=== PATIENT | male | born 1980 | race Caucasian/White ===

== ENCOUNTER 2016-11-12 13:43 | Emergency (ER) | payer MEDICARE, MEDICAID ==
[~2016-11-12] VITALS: Ht 172.7 cm; Wt 83.0 kg
[2016-11-12] MEDS ORDERED: ONDANSETRON 4MG ODT PO STA (15:58)
[2016-11-12 16:22] LABS: CHLORIDE 99 mEq/L (98-107); HEMATOCRIT. 45.9 % (42.0-52.0); HEMOGLOBIN. 16.3 g/dL (14.0-18.0); MEAN CORPUSCULAR HEMOGLOBIN 29.5 pg (28.0-32.0); MEAN CORPUSCULAR VOLUME 83.2 fL (80.0-94.0); MEAN PLATELET VOLUME 7.3 fl (7.4-10.4); PLATELET 242 x1000/uL (130-400); RED BLOOD CELL COUNT 5.51 mill/uL (4.7-6.1)
[2016-11-12 16:28] LABS: CARBON DIOXIDE 27 mEq/L (21-32)
[2016-11-12 16:58] LABS: CLARITY URINE CLOUDY (CLEAR); COLOR URINE DARK YELLOW (YELLOW); GLUCOSE URINE 1+ (NEGATIVE); KETONES URINE NEGATIVE (NEGATIVE); LEUKOCYTE ESTERASE URINE 1+ (NEGATIVE); NITRITE URINE NEGATIVE (NEGATIVE); OCCULT BLOOD URINE 2+ (NEGATIVE); PH URINE 6.5 (4.5-8.0); PROTEIN URINE 2+ (NEGATIVE); SPECIFIC GRAVITY URINE 1.021 (1.005-1.030)
[2016-11-12 17:28] LABS: ATYPICAL LYMPHOCYTES 1; PLATELET ESTIMATE NORMAL
[2016-11-12] MEDS ORDERED: LEVOFLOXACIN 750MG PREMIX 150 ML IV ONE (18:15)
[2016-11-12 20:45] VITALS: BP 119/72
== END 2016-11-12 21:24 | disposition home or self-care (01) ==
LOC: ER 14:33
DX: T83.511A Infection and inflammatory reaction due to indwelling urethral catheter, initial encounter (principal); N39.0 Urinary tract infection, site not specified; G82.20 Paraplegia, unspecified
CPT/HCPCS: 36415; 51702; 80053; 81001; 83605; 83690; 85025; 87015; 87045; 87427; 87449; 87493; 96365; 99284; J1956; Q0162; A4315

== ENCOUNTER 2021-08-07 11:48 | Inpatient (IN) | payer MEDICARE, MEDICAID ==
[~2021-08-07] VITALS: Ht 172.7 cm; Wt 96.5 kg
[2021-08-07] MEDS ORDERED: FAMOTIDINE 20MG/2ML VIAL IV STA (12:32)
[2021-08-07] MEDS ORDERED: ONDANSETRON HCL 4MG/2ML INJ IV STA (12:32)
[2021-08-07] MEDS ORDERED: SODIUM CHLORIDE 0.9% 1000ML BAG (SEPSIS BOLUS) IV ONE (12:45)
[2021-08-07 13:07] LABS: HEMATOCRIT. 48.9 % (42.0-52.0); HEMOGLOBIN. 17.1 g/dL (14.0-18.0); MEAN CORPUSCULAR HEMOGLOBIN 28.7 pg (28.0-32.0); RED BLOOD CELL COUNT 5.96 mill/uL (4.7-6.1); RED CELL DISTRIBUTION WIDTH 13.2 % (11.6-14.6)
[2021-08-07 13:16] LABS: CHLORIDE 100 mEq/L (98-107)
[2021-08-07] MEDS ORDERED: INSULIN REGULAR (HUMULIN R) 300UNITS/3ML VIAL SUBCUT NR (13:30)
[2021-08-07 13:42] LABS: CLARITY URINE CLEAR (CLEAR); COLOR URINE DARK YELLOW (YELLOW); KETONES URINE TRACE (NEGATIVE); LEUKOCYTE ESTERASE URINE TRACE (NEGATIVE); NITRITE URINE NEGATIVE (NEGATIVE); OCCULT BLOOD URINE 1+ (NEGATIVE); PH URINE 5.5 (4.5-8.0); PROTEIN URINE 2+ (NEGATIVE); SPECIFIC GRAVITY URINE 1.043 (1.005-1.030)
[2021-08-07 14:10] LABS: PLATELET ESTIMATE NORMAL
[2021-08-07 14:12] LABS: MEAN PLATELET VOLUME 7.5 fl (7.4-10.4); PLATELET 314 x1000/uL (130-400)
[2021-08-07] MEDS ORDERED: CEFTRIAXONE 1 G PREMIX 50 ML IV NR (14:15)
[2021-08-07] MEDS ORDERED: PIPERACILLIN/TAZ 3.375G PREMIX 50 ML IV NR (15:45)
[2021-08-07] MEDS ORDERED: PIPERACILLIN/TAZOBACTAM 3.375GM/50ML PREMIX IV ONE (15:45)
[2021-08-07] MEDS ORDERED: IPRATROPIUM/ALBUTEROL 0.5-3(2.5)MG/3ML NEB NEB PRN (16:00)
[2021-08-07] MEDS ORDERED: CLONIDINE 0.1MG TABLET PO PRN (16:00)
[2021-08-07] MEDS ORDERED: ACETAMINOPHEN 325MG TABLET PO PRN (16:00)
[2021-08-07] MEDS ORDERED: ONDANSETRON HCL 4MG/2ML INJ IV PRN (16:00)
[2021-08-07] MEDS ORDERED: GUAIFENESIN 200MG/10ML SUGAR FREE UDC PO PRN (16:00)
[2021-08-07] MEDS ORDERED: ENOXAPARIN 40MG/0.4ML SYR SUBCUT SCH (16:00)
[2021-08-07] MEDS ORDERED: DEXTROSE 50% WATER 50ML SYRINGE IV PRN (16:15)
[2021-08-07] MEDS: BLOOD SUGAR DIAGNOSTIC STRIP TEST SCH ×2 (16:45→21:00)
[2021-08-07] MEDS: INSULIN LISPRO 100 UNITS/ML SUBCUT SCH ×2 (19:39→22:29)
[2021-08-07 22:30] VITALS: BP 121/70
[2021-08-07] MEDS: INSULIN GLARGINE 100 UNITS/ML SUBCUT SCH (22:32)
[2021-08-07] MEDS: PIPERACILLIN/TAZOBACTAM 3.375 G in DEXTROSE 5% WATER 50 ML IV SCH (22:34)
[2021-08-08] MEDS ORDERED: INSU100I28 SQ (02:34)
[2021-08-08] MEDS ORDERED: METF-874 MT (02:34)
[2021-08-08] MEDS ORDERED: PHEN100C4 MT (02:34)
[2021-08-08] MEDS ORDERED: DOCU50CA11 MT (02:34)
[2021-08-08 04:00] VITALS: BP 124/85
[2021-08-08 06:36] LABS: BASOPHILS % 0.4 % (0.0-2.0); EOSINOPHILS % 4.3 % (0.0-5.0); HEMATOCRIT. 42.1 % (42.0-52.0); HEMOGLOBIN. 15.1 g/dL (14.0-18.0); LYMPHOCYTES % 15.5 % (20.0-50.0); MEAN CORPUSCULAR HEMOGLOBIN 29.4 pg (28.0-32.0); MEAN CORPUSCULAR VOLUME 82.1 fL (80.0-94.0); MEAN PLATELET VOLUME 7.7 fl (7.4-10.4); NEUTROPHILS % 70.8 % (40.0-76.0); PLATELET 293 x1000/uL (130-400); RED BLOOD CELL COUNT 5.13 mill/uL (4.7-6.1); RED CELL DISTRIBUTION WIDTH 13.1 % (11.6-14.6)
[2021-08-08] MEDS: PIPERACILLIN/TAZOBACTAM 3.375 G in DEXTROSE 5% WATER 50 ML IV SCH ×3 (06:37→21:09)
[2021-08-08] MEDS: BLOOD SUGAR DIAGNOSTIC STRIP TEST SCH ×4 (07:20→20:38)
[2021-08-08 07:22] LABS: CHLORIDE 107 mEq/L (98-107)
[2021-08-08 07:31] LABS: LDL CHOLESTEROL 89 mg/dL (5-100)
[2021-08-08 07:33] LABS: HDL CHOLESTEROL 37 mg/dL (40-59)
[2021-08-08 08:00] VITALS: BP 127/81
[2021-08-08] MEDS ORDERED: POTASSIUM CHLORIDE 20MEQ TABLET SR PO NR (08:00)
[2021-08-08] MEDS: INSULIN LISPRO 100 UNITS/ML SUBCUT SCH ×6 (09:52→21:10)
[2021-08-08 12:00] VITALS: BP 122/82
[2021-08-08] MEDS ORDERED: PNEUMOCOCCAL 23-VAL P-SAC VAC 0.5 ML IM ONE (12:00)
[2021-08-08] MEDS ORDERED: INFLUENZA VACCINE 05/PF 0.5 ML SYRINGE IM ONE (12:00)
[2021-08-08] MEDS ORDERED: PHENYTOIN SODIUM EXTENDED 100MG CAPSULE PO NR ×2 (15:45→21:00)
[2021-08-08 16:00] VITALS: BP 130/88
[2021-08-08 20:00] VITALS: BP 126/83
[2021-08-08] MEDS: ATORVASTATIN CALCIUM 10MG TABLET PO SCH (21:09)
[2021-08-08] MEDS: INSULIN GLARGINE 100 UNITS/ML SUBCUT SCH (21:11)
[2021-08-08 23:59] VITALS: BP 120/83
[2021-08-09 04:00] VITALS: BP 124/82
[2021-08-09 06:24] LABS: BASOPHILS % 0.2 % (0.0-2.0); EOSINOPHILS % 4.9 % (0.0-5.0); HEMOGLOBIN. 14.7 g/dL (14.0-18.0); LYMPHOCYTES % 16.9 % (20.0-50.0); MEAN CORPUSCULAR HEMOGLOBIN 28.8 pg (28.0-32.0); MEAN CORPUSCULAR VOLUME 82.4 fL (80.0-94.0); MEAN PLATELET VOLUME 7.5 fl (7.4-10.4); MONOCYTES % 8.5 % (2.0-8.0); NEUTROPHILS % 69.5 % (40.0-76.0); PLATELET 305 x1000/uL (130-400); RED BLOOD CELL COUNT 5.09 mill/uL (4.7-6.1)
[2021-08-09] MEDS: DOCUSATE SODIUM 100MG CAPSULE PO PRN (06:34)
[2021-08-09] MEDS: PIPERACILLIN/TAZOBACTAM 3.375 G in DEXTROSE 5% WATER 50 ML IV SCH ×3 (06:34→22:12)
[2021-08-09 06:48] LABS: CHLORIDE 107 mEq/L (98-107)
[2021-08-09] MEDS: BLOOD SUGAR DIAGNOSTIC STRIP TEST SCH ×4 (07:20→21:00)
[2021-08-09 07:47] VITALS: BP 120/80
[2021-08-09] MEDS: INSULIN LISPRO 100 UNITS/ML SUBCUT SCH ×7 (09:11→22:29)
[2021-08-09 12:00] VITALS: BP 122/76
[2021-08-09] MEDS: MICAFUNGIN 100 MG in SODIUM CHLORIDE 0.9% 100 ML IV SCH (14:23)
[2021-08-09 15:57] VITALS: BP 120/74
[2021-08-09 20:00] VITALS: BP 134/86
[2021-08-09] MEDS ORDERED: INSULIN GLARGINE 100 UNITS/ML SUBCUT SCH (22:00)
[2021-08-09] MEDS: ATORVASTATIN CALCIUM 10MG TABLET PO SCH (22:11)
[2021-08-10] VITALS (8 sets, daily range): BP systolic 118–169; BP diastolic 78–97
[2021-08-10] MEDS: DOCUSATE SODIUM 100MG CAPSULE PO PRN (04:24)
[2021-08-10] MEDS: PIPERACILLIN/TAZOBACTAM 3.375 G in DEXTROSE 5% WATER 50 ML IV SCH ×2 (05:19→14:49)
[2021-08-10] MEDS: BLOOD SUGAR DIAGNOSTIC STRIP TEST SCH ×3 (07:24→16:45)
[2021-08-10] MEDS: INSULIN LISPRO 100 UNITS/ML SUBCUT SCH ×6 (08:27→16:52)
[2021-08-10] MEDS ORDERED: INSULIN GLARGINE 100 UNITS/ML SUBCUT SCH (10:00)
[2021-08-10] MEDS ORDERED: FLUCONAZOLE 100MG TABLET PO SCH (11:00)
[2021-08-10] MEDS ORDERED: FLUC100T42 MT ×3 (11:33→16:23)
[2021-08-10] MEDS: MICAFUNGIN 100 MG in SODIUM CHLORIDE 0.9% 100 ML IV SCH (11:34)
[2021-08-10 11:41] LABS: BASOPHILS % 0.2 % (0.0-2.0); EOSINOPHILS % 4.1 % (0.0-5.0); HEMATOCRIT. 42.4 % (42.0-52.0); HEMOGLOBIN. 14.6 g/dL (14.0-18.0); LYMPHOCYTES % 15.8 % (20.0-50.0); MEAN CORPUSCULAR HEMOGLOBIN 28.7 pg (28.0-32.0); MEAN CORPUSCULAR VOLUME 83.4 fL (80.0-94.0); MEAN PLATELET VOLUME 7.7 fl (7.4-10.4); MONOCYTES % 7.3 % (2.0-8.0); NEUTROPHILS % 72.6 % (40.0-76.0); PLATELET 334 x1000/uL (130-400); RED BLOOD CELL COUNT 5.08 mill/uL (4.7-6.1)
[2021-08-10 14:28] LABS: CHLORIDE 103 mEq/L (98-107)
== END 2021-08-10 21:30 | disposition home health service (06) | DRG 872 ==
LOC: ER 11:48 → 6WST 15:34 → EDBEDREQSVC 16:02 → EDBEDREQ 16:02 → ENRESERV 17:51 → 6WST 20:48
PROVIDERS: ADMIT Internal Medicine; ATTEND Internal Medicine
DX: B37.7 Candidal sepsis (principal); G82.20 Paraplegia, unspecified; E87.1 Hypo-osmolality and hyponatremia; N30.00 Acute cystitis without hematuria; K62.89 Other specified diseases of anus and rectum; K52.9 Noninfective gastroenteritis and colitis, unspecified; I10 Essential (primary) hypertension; E78.5 Hyperlipidemia, unspecified; K21.9 Gastro-esophageal reflux disease without esophagitis; G40.909 Epilepsy, unspecified, not intractable, without status epilepticus; E11.65 Type 2 diabetes mellitus with hyperglycemia; F17.210 Nicotine dependence, cigarettes, uncomplicated; Z87.440 Personal history of urinary (tract) infections
CPT/HCPCS: 36415; 71045; 74176; 76536; 80048; 80053; 80061; 81003; 82010; 82962; 83036; 83605; 84145; 84439; 84443; 84480; 84484; 85025; 87106; 90686; 90732; 99285; A6261; J0696; J1650; J1815; J2248; J2405; J2543; J3490; J7030; J7050; J7060

== ENCOUNTER 2023-10-07 02:01 | Emergency (ER) | payer MEDICARE, MEDICAID ==
[~2023-10-07] VITALS: Ht 167.6 cm; Wt 69.0 kg
[~2023-10-07 02:01] MED LIST: DOCU50CA11 MT; FLUC100T42 MT; IBUP-2030 MT; INSU100I28 SQ; METF-874 MT; PHEN100C4 MT
[2023-10-07 02:10] VITALS: BP 135/78; PULSE 91; RESP 15; TEMP 98.3; O2SAT 100
== END 2023-10-07 03:02 | disposition home or self-care (01) ==
LOC: ER 02:01
DX: Z46.6 Encounter for fitting and adjustment of urinary device (principal); E11.9 Type 2 diabetes mellitus without complications; I10 Essential (primary) hypertension; Z56.9 Unspecified problems related to employment
CPT/HCPCS: 99283

== ENCOUNTER 2023-10-30 03:10 | Emergency (ER) | payer BC, MEDICAID ==
[~2023-10-30] VITALS: Ht 177.8 cm; Wt 75.0 kg
[2023-10-30 03:14] VITALS: BP 167/84; PULSE 90; RESP 16; TEMP 98.4; O2SAT 100
[2023-10-30 04:23] LABS: BASOPHILS % 0.6 % (0.0-2.0); EOSINOPHILS % 4.3 % (0.0-5.0); HEMATOCRIT. 31.3 % (42.0-52.0); HEMOGLOBIN. 10.9 g/dL (14.0-18.0); LYMPHOCYTES % 22.8 % (20.0-50.0); MEAN CORPUSCULAR HEMOGLOBIN 29.3 pg (28.0-32.0); MEAN CORPUSCULAR HGB CONC 34.8 g/dL (31.0-37.0); MEAN CORPUSCULAR VOLUME 84.1 fL (80.0-94.0); MEAN PLATELET VOLUME 6.4 fl (7.4-10.4); MONOCYTES % 9.2 % (2.0-8.0); NEUTROPHILS % 63.1 % (40.0-76.0); PLATELET 395 x1000/uL (130-400); RED BLOOD CELL COUNT 3.72 mill/uL (4.7-6.1); RED CELL DISTRIBUTION WIDTH 13.7 % (11.6-14.6); WHITE BLOOD COUNT 9.5 x1000/uL (4.5-11.0)
[2023-10-30 04:34] LABS: CHLORIDE 103 mEq/L (98-107); POTASSIUM 3.8 mEq/L (3.5-5.1); SODIUM 135 mEq/L (136-145)
[2023-10-30 04:35] LABS: CARBON DIOXIDE 26 mEq/L (21-32)
[2023-10-30 04:36] LABS: CALCIUM 8.8 mg/dL (8.7-10.4)
[2023-10-30 04:40] LABS: CREATININE 0.6 mg/dL (0.6-1.3); GLUCOSE 233 mg/dL (70-105); UREA NITROGEN BLOOD 17 mg/dL (9-23)
[2023-10-30 04:42] LABS: ALANINE AMINOTRANSFERASE 12 IU/L (10-49); ASPARTATE AMINOTRANSFERASE 14 IU/L (<34)
[2023-10-30 04:43] LABS: BILIRUBIN TOTAL 0.3 mg/dL (0.1-1.0); PROTEIN TOTAL 7.2 g/dL (6.0-8.3)
== END 2023-10-30 06:47 | disposition left against medical advice (07) ==
LOC: ER 03:10
DX: R10.9 Unspecified abdominal pain (principal); Z53.21 Procedure and treatment not carried out due to patient leaving prior to being seen by health care provider
CPT/HCPCS: 36415; 80053; 85025

== ENCOUNTER 2023-12-15 04:02 | Emergency (ER) | payer BC, MEDICAID ==
[~2023-12-15] VITALS: Ht 160 cm; Wt 68.0 kg
[2023-12-15 04:04] VITALS: BP 122/68; PULSE 76; RESP 16; TEMP 98.4; O2SAT 100
[2023-12-15] MEDS ORDERED: IBUP-2030 MT (05:22)
[2023-12-15] MEDS ORDERED: AMOX1TAB16 MT (05:22)
[2023-12-15] MEDS: AMOXICILLIN/POTASSIUM CLAVULANATE 875/125MG TAB PO ONE (06:13)
[2023-12-15] MEDS: IBUPROFEN 800MG TABLET PO ONE (06:14)
== END 2023-12-15 06:14 | disposition home or self-care (01) ==
LOC: ER 04:02
DX: H66.92 Otitis media, unspecified, left ear (principal); I10 Essential (primary) hypertension; E11.9 Type 2 diabetes mellitus without complications; Z79.899 Other long term (current) drug therapy; Z88.1 Allergy status to other antibiotic agents; Z79.4 Long term (current) use of insulin; Z86.59 Personal history of other mental and behavioral disorders
CPT/HCPCS: 99283

== ENCOUNTER 2024-01-22 20:01 | Emergency (ER) | payer BC, MEDICAID ==
[~2024-01-22] VITALS: Ht 172.7 cm; Wt 69.0 kg
[~2024-01-22 20:01] MED LIST changes: +AMOX1TAB16 MT
[2024-01-22 20:07] VITALS: BP 105/53; PULSE 101; RESP 18; TEMP 98.2; O2SAT 100
== END 2024-01-22 23:16 | disposition left against medical advice (07) ==
LOC: ER 20:01
DX: R10.9 Unspecified abdominal pain (principal); E11.9 Type 2 diabetes mellitus without complications; K21.9 Gastro-esophageal reflux disease without esophagitis; I10 Essential (primary) hypertension; Z79.899 Other long term (current) drug therapy
CPT/HCPCS: 71045; 99283

== ENCOUNTER 2024-02-05 00:11 | Emergency (ER) | payer BC, MEDICAID ==
[~2024-02-05] VITALS: Ht 167.6 cm; Wt 70.0 kg
[2024-02-05 00:14] VITALS: O2SAT 100
[2024-02-05] MEDS: SODIUM CHLORIDE 0.9% 1,000 ML IV ONE (01:00)
[2024-02-05 01:02] LABS: BASOPHILS % 0.6 % (0.0-2.0); HEMATOCRIT. 26.6 % (42.0-52.0); LYMPHOCYTES % 20.7 % (20.0-50.0); MEAN CORPUSCULAR HEMOGLOBIN 28.1 pg (28.0-32.0); MEAN CORPUSCULAR HGB CONC 33.8 g/dL (31.0-37.0); MEAN CORPUSCULAR VOLUME 82.9 fL (80.0-94.0); MEAN PLATELET VOLUME 5.9 fl (7.4-10.4); NEUTROPHILS % 68.7 % (40.0-76.0); PLATELET 471 x1000/uL (130-400); RED BLOOD CELL COUNT 3.21 mill/uL (4.7-6.1); RED CELL DISTRIBUTION WIDTH 14.2 % (11.6-14.6); WHITE BLOOD COUNT 10.8 x1000/uL (4.5-11.0)
[2024-02-05 01:09] LABS: CHLORIDE 101 mEq/L (98-107); POTASSIUM 3.8 mEq/L (3.5-5.1); SODIUM 130 mEq/L (136-145)
[2024-02-05 01:10] LABS: CARBON DIOXIDE 23 mEq/L (21-32)
[2024-02-05 01:11] LABS: CALCIUM 8.9 mg/dL (8.7-10.4)
[2024-02-05 01:15] LABS: CREATININE 0.7 mg/dL (0.6-1.3); GLUCOSE 212 mg/dL (70-105)
[2024-02-05 01:16] LABS: UREA NITROGEN BLOOD 16 mg/dL (9-23)
[2024-02-05 01:17] LABS: ALANINE AMINOTRANSFERASE 10 IU/L (10-49); ALBUMIN 3.8 g/dL (3.2-4.8); ASPARTATE AMINOTRANSFERASE 9 IU/L (<34)
[2024-02-05 01:18] LABS: BILIRUBIN DIRECT 0.1 mg/dL (<=3.0); BILIRUBIN TOTAL 0.4 mg/dL (0.1-1.0); PROTEIN TOTAL 7.8 g/dL (6.0-8.3)
[2024-02-05] MEDS: MORPHINE SULFATE 4 MG/ML INJ (FOR IV/IM USE) IV STA (01:35)
[2024-02-05] MEDS: ONDANSETRON HCL 4MG/2ML INJ IV STA (01:35)
[2024-02-05 01:53] LABS: PROTHROMBIN TIME 11.2 sec (9.6-11.0)
[2024-02-05 03:03] VITALS: BP 128/73; PULSE 90; RESP 16; TEMP 36.55848; O2SAT 99
[2024-02-05] MEDS ORDERED: SENN-139 MT (03:21)
[2024-02-05] MEDS ORDERED: POLY17PO3 MT (03:21)
[2024-02-05] MEDS ORDERED: MAGN296S70 MT (03:21)
== END 2024-02-05 03:41 | disposition home or self-care (01) ==
LOC: ER 00:22
DX: K94.03 Colostomy malfunction (principal); K21.9 Gastro-esophageal reflux disease without esophagitis; I10 Essential (primary) hypertension; F17.200 Nicotine dependence, unspecified, uncomplicated; E11.9 Type 2 diabetes mellitus without complications; G82.20 Paraplegia, unspecified; D64.9 Anemia, unspecified; Z88.1 Allergy status to other antibiotic agents; Z79.899 Other long term (current) drug therapy
CPT/HCPCS: 99285; 74176; 96374; 96361; 96375; 80076; 80048; 82962; 83690; 85025; 85610; 36415; J2405; J2270; J7030

== ENCOUNTER 2024-02-15 01:50 | Emergency (ER) | payer BC, MEDICAID ==
[~2024-02-15] VITALS: Ht 172.7 cm; Wt 66.0 kg
[~2024-02-15 01:50] MED LIST changes: +MAGN296S70 MT; +POLY17PO3 MT; +SENN-139 MT
[2024-02-15 01:56] VITALS: TEMP 98.6; O2SAT 98
[2024-02-15 02:27] VITALS: BP 136/82; PULSE 98; RESP 18; O2SAT 100
[2024-02-15] MEDS: MAGNESIUM/ALUMINUM HYDROXIDE/SIMETHICONE 30ML UDC PO ONE (02:52)
== END 2024-02-15 03:27 | disposition home or self-care (01) ==
LOC: ER 01:50
DX: R10.9 Unspecified abdominal pain (principal); I10 Essential (primary) hypertension; E11.9 Type 2 diabetes mellitus without complications; Z88.1 Allergy status to other antibiotic agents; Z79.4 Long term (current) use of insulin; Z79.899 Other long term (current) drug therapy; Z86.59 Personal history of other mental and behavioral disorders
CPT/HCPCS: 99282

== ENCOUNTER 2024-03-26 02:02 | Emergency (ER) | payer BC, MEDICAID ==
[~2024-03-26] VITALS: Ht 177.8 cm; Wt 73.0 kg
[~2024-03-26 02:02] MED LIST changes: +METF-1150 MT; -METF-874 MT
[2024-03-26 02:09] VITALS: BP 122/77; PULSE 66; RESP 16; O2SAT 100
[2024-03-26 02:41] LABS: BASOPHILS % 0.5 % (0.0-2.0); HEMATOCRIT. 23.5 % (42.0-52.0); HEMOGLOBIN. 8.1 g/dL (14.0-18.0); LYMPHOCYTES % 31.6 % (20.0-50.0); MEAN CORPUSCULAR HEMOGLOBIN 28.4 pg (28.0-32.0); MEAN CORPUSCULAR HGB CONC 34.5 g/dL (31.0-37.0); MEAN CORPUSCULAR VOLUME 82.5 fL (80.0-94.0); MONOCYTES % 7.6 % (2.0-8.0); NEUTROPHILS % 56.3 % (40.0-76.0); PLATELET 458 x1000/uL (130-400); RED BLOOD CELL COUNT 2.85 mill/uL (4.7-6.1); RED CELL DISTRIBUTION WIDTH 15.2 % (11.6-14.6); WHITE BLOOD COUNT 7.5 x1000/uL (4.5-11.0)
[2024-03-26 02:51] LABS: CHLORIDE 107 mEq/L (98-107); POTASSIUM 4.1 mEq/L (3.5-5.1); SODIUM 138 mEq/L (136-145)
[2024-03-26 02:52] VITALS: TEMP 98.6
[2024-03-26 02:52] LABS: CARBON DIOXIDE 26 mEq/L (21-32)
[2024-03-26] MEDS: ACETAMINOPHEN 325MG TABLET PO NR (02:52)
[2024-03-26 02:53] LABS: CALCIUM 8.9 mg/dL (8.7-10.4)
[2024-03-26 02:58] LABS: CREATININE 0.8 mg/dL (0.6-1.3); GLUCOSE 174 mg/dL (70-105); UREA NITROGEN BLOOD 21 mg/dL (9-23)
[2024-03-26] MEDS ORDERED: ACET-2708 MT (04:53)
== END 2024-03-26 05:05 | disposition home or self-care (01) ==
LOC: ER 02:15
DX: G89.29 Other chronic pain (principal); G82.20 Paraplegia, unspecified; E11.9 Type 2 diabetes mellitus without complications; E78.00 Pure hypercholesterolemia, unspecified; I10 Essential (primary) hypertension; Z88.1 Allergy status to other antibiotic agents; Z79.899 Other long term (current) drug therapy
CPT/HCPCS: 36415; 80048; 85025; 99283

== ENCOUNTER 2024-04-09 22:57 | Emergency (ER) | payer BC, MEDICAID ==
[~2024-04-09] VITALS: Ht 172.7 cm; Wt 73.0 kg
[~2024-04-09 22:57] MED LIST changes: +ACET-2708 MT
[2024-04-09 23:08] VITALS: BP 140/85; PULSE 103; RESP 18; TEMP 98.4; O2SAT 99
== END 2024-04-10 01:53 | disposition home or self-care (01) ==
LOC: ER 23:07
DX: Z93.3 Colostomy status (principal); I10 Essential (primary) hypertension; E11.9 Type 2 diabetes mellitus without complications; D64.9 Anemia, unspecified; E78.00 Pure hypercholesterolemia, unspecified; Z88.1 Allergy status to other antibiotic agents; Z79.84 Long term (current) use of oral hypoglycemic drugs; Z79.4 Long term (current) use of insulin; Z79.899 Other long term (current) drug therapy
CPT/HCPCS: 99283

== ENCOUNTER 2024-06-20 23:11 | Emergency (ER) | payer BC, MEDICAID ==
[~2024-06-20] VITALS: Ht 167.6 cm; Wt 68.0 kg
[2024-06-20 23:21] VITALS: BP 125/86; PULSE 93; RESP 18; TEMP 37.1; O2SAT 100
== END 2024-06-21 05:03 | disposition left against medical advice (07) ==
LOC: ER 23:11 → EDBEDREQTM 06-21 04:39 → EDBEDREQ 06-21 04:39 → ER 06-21 05:03
DX: Z43.3 Encounter for attention to colostomy (principal); Z46.6 Encounter for fitting and adjustment of urinary device; G82.20 Paraplegia, unspecified; E11.9 Type 2 diabetes mellitus without complications; E78.00 Pure hypercholesterolemia, unspecified; I10 Essential (primary) hypertension; Z79.4 Long term (current) use of insulin; Z79.84 Long term (current) use of oral hypoglycemic drugs; Z88.1 Allergy status to other antibiotic agents
CPT/HCPCS: 99283

== ENCOUNTER 2024-09-12 22:42 | Emergency (ER) | payer BC, MEDICAID ==
[~2024-09-12] VITALS: Ht 172.7 cm; Wt 64.0 kg
[~2024-09-12 22:42] MED LIST changes: +AMLO10TA80 PO; +ARIP10TA86 PO; +BENZ100C86 PO; +BENZ200C52 PO; +CELE-116 PO; +CYCL10TA21 PO; +FLUO-413 PO; +HYDR-4001 MT; +PHEN100C12 PO; +TAMS-54 MT
[2024-09-12 23:05] VITALS: O2SAT 100
[2024-09-13] MEDS: ACETAMINOPHEN 325MG TABLET PO ONE (00:11)
[2024-09-13] MEDS ORDERED: TOPUD MT (00:35)
[2024-09-13 00:50] VITALS: BP 116/65; PULSE 102; RESP 16; TEMP 36.8; O2SAT 100
== END 2024-09-13 00:50 | disposition home or self-care (01) ==
LOC: ER 22:42
DX: M25.512 Pain in left shoulder (principal); E78.00 Pure hypercholesterolemia, unspecified; E11.9 Type 2 diabetes mellitus without complications; I10 Essential (primary) hypertension; Z79.4 Long term (current) use of insulin; Z79.84 Long term (current) use of oral hypoglycemic drugs; Z79.899 Other long term (current) drug therapy; Z88.1 Allergy status to other antibiotic agents
CPT/HCPCS: 73030; 99283

== ENCOUNTER 2024-10-01 14:22 | Emergency (ER) | payer MEDICARE, MEDICAID ==
[~2024-10-01] VITALS: Ht 175.3 cm; Wt 68.0 kg
[~2024-10-01 14:22] MED LIST changes: +TOPUD MT
[2024-10-01 14:27] VITALS: O2SAT 100
[2024-10-01] MEDS: HYDROCODONE/ACETAMINOPHEN 5/325MG TABLET PO ONE (15:28)
[2024-10-01 16:16] LABS: CLARITY URINE TURBID (CLEAR); COLOR URINE YELLOW (YELLOW); GLUCOSE URINE 3+ (NEGATIVE); KETONES URINE NEGATIVE (NEGATIVE); LEUKOCYTE ESTERASE URINE 1+ (NEGATIVE); NITRITE URINE POSITIVE (NEGATIVE); OCCULT BLOOD URINE 1+ (NEGATIVE); PH URINE 6.5 (4.5-8.0); PROTEIN URINE 2+ (NEGATIVE); SPECIFIC GRAVITY URINE 1.019 (1.005-1.030); UROBILINOGEN URINE 0.2 E.U./dL (0.2-1.0)
[2024-10-01 16:35] LABS: BACTERIA URINE 4+; SQUAMOUS EPITHELIAL CELL URINE NONE SEEN /lpf (RARE/1+)
[2024-10-01] MEDS ORDERED: SULF1TAB48 MT (16:50)
[2024-10-01 17:15] VITALS: BP 138/78; PULSE 85; RESP 17; TEMP 36.7; O2SAT 100
[2024-10-01] MEDS: SULFAMETHOXAZOLE/TRIMETHOPRIM 800/160MG TABLET PO SCH (17:27)
== END 2024-10-01 17:30 | disposition home or self-care (01) ==
LOC: ER 14:22
DX: N39.0 Urinary tract infection, site not specified (principal); E78.00 Pure hypercholesterolemia, unspecified; E11.9 Type 2 diabetes mellitus without complications; I10 Essential (primary) hypertension; Z79.4 Long term (current) use of insulin; Z79.84 Long term (current) use of oral hypoglycemic drugs; Z79.899 Other long term (current) drug therapy; Z93.3 Colostomy status; Z88.1 Allergy status to other antibiotic agents
CPT/HCPCS: 81003; 87077; 87186; 99283

== ENCOUNTER 2024-12-02 05:04 | Emergency (ER) | payer MEDICARE, OTHER ==
[~2024-12-02] VITALS: Ht 172.7 cm; Wt 66.0 kg
[~2024-12-02 05:04] MED LIST changes: +SULF1TAB48 MT
[2024-12-02 05:18] VITALS: O2SAT 100
[2024-12-02 06:55] VITALS: BP 142/82; PULSE 100; RESP 19; TEMP 36.4; O2SAT 100
[2024-12-02 07:57] LABS: CLARITY URINE TURBID (CLEAR); COLOR URINE YELLOW (YELLOW); GLUCOSE URINE 1+ (NEGATIVE); KETONES URINE NEGATIVE (NEGATIVE); LEUKOCYTE ESTERASE URINE 2+ (NEGATIVE); NITRITE URINE POSITIVE (NEGATIVE); OCCULT BLOOD URINE NEGATIVE (NEGATIVE); PH URINE >=9.0 (4.5-8.0); PROTEIN URINE 4+ (NEGATIVE); SPECIFIC GRAVITY URINE 1.039 (1.005-1.030); UROBILINOGEN URINE 0.2 E.U./dL (0.2-1.0)
[2024-12-02 08:36] LABS: TRIPLE PHOSPHATE CRYSTAL URINE 4+ /lpf
[2024-12-02 08:37] LABS: BACTERIA URINE 4+; SQUAMOUS EPITHELIAL CELL URINE NONE SEEN /lpf (RARE/1+)
== END 2024-12-02 06:59 | disposition home or self-care (01) ==
LOC: ER 05:04
DX: N39.0 Urinary tract infection, site not specified (principal); Z93.3 Colostomy status; E78.00 Pure hypercholesterolemia, unspecified; E11.9 Type 2 diabetes mellitus without complications; I10 Essential (primary) hypertension; Z79.4 Long term (current) use of insulin; Z79.899 Other long term (current) drug therapy; Z79.84 Long term (current) use of oral hypoglycemic drugs; Z88.1 Allergy status to other antibiotic agents
CPT/HCPCS: 81003; 87077; 87186; 99283

== ENCOUNTER 2024-12-27 19:50 | Emergency (ER) | payer MEDICARE, OTHER ==
[~2024-12-27] VITALS: Ht 172.7 cm; Wt 70.0 kg
[2024-12-27 19:54] VITALS: O2SAT 98
[2024-12-27] MEDS: ACETAMINOPHEN 325MG TABLET PO ONE (23:35)
[2024-12-27 23:51] VITALS: TEMP 36.6
[2024-12-28 01:03] VITALS: BP 133/80; PULSE 93; RESP 21; O2SAT 98
== END 2024-12-28 01:13 | disposition home or self-care (01) ==
LOC: ER 19:50 → CANBEDREQ 22:57 → ER 12-28 01:13
DX: M54.50 Low back pain, unspecified (principal); F17.200 Nicotine dependence, unspecified, uncomplicated; I10 Essential (primary) hypertension; E78.00 Pure hypercholesterolemia, unspecified; E11.9 Type 2 diabetes mellitus without complications; R51.9 Headache, unspecified; Z88.1 Allergy status to other antibiotic agents; Z79.4 Long term (current) use of insulin; Z79.899 Other long term (current) drug therapy; Z86.59 Personal history of other mental and behavioral disorders; W05.0XXA Fall from non-moving wheelchair, initial encounter; Y93.89 Activity, other specified; Y92.89 Other specified places as the place of occurrence of the external cause; Y99.8 Other external cause status
CPT/HCPCS: 72131; 99285